=== PATIENT | male | born 1940 | race African-American/Black ===

== ENCOUNTER 2020-12-19 00:53 | Emergency (ER) | payer MEDICARE ==
[~2020-12-19] VITALS: Ht 182.9 cm; Wt 90.0 kg
[~2020-12-19 00:53] MED LIST: AMIT25TA9 PO; APIX5TAB PO; CARB-299 PO; CLON1TAB12 PO; DIGO125T80 PO; DILT240C96 PO; FURO20TA4 PO; GABA-529 PO; GLIP5TAB12 PO; HYDR-4133 PO; LOSA50TA41 PO; LOVA40TA73 PO; METF-416 PO; MONT10TA32 PO; OMEP20TA2 PO; P20 MT; PARO25TA9 PO; PERP1TAB6 PO; ROSU40TA PO; SITA1TAB2 PO; SITA50TA3 PO; TRAZ-252 PO
[2020-12-19 02:41] LABS: CLARITY URINE CLEAR (CLEAR); COLOR URINE YELLOW (YELLOW); KETONES URINE NEGATIVE (NEGATIVE); LEUKOCYTE ESTERASE URINE NEGATIVE (NEGATIVE); NITRITE URINE NEGATIVE (NEGATIVE); OCCULT BLOOD URINE NEGATIVE (NEGATIVE); PH URINE 5.5 (4.5-8.0); PROTEIN URINE NEGATIVE (NEGATIVE); SPECIFIC GRAVITY URINE 1.007 (1.005-1.030); UROBILINOGEN URINE 0.2 E.U./dL (0.2-1.0)
[2020-12-19 03:12] LABS: BASOPHILS % 0.3 % (0.0-2.0); EOSINOPHILS % 0.2 % (0.0-5.0); HEMATOCRIT. 35.8 % (42.0-52.0); HEMOGLOBIN. 12.5 g/dL (14.0-18.0); LYMPHOCYTES % 9.3 % (20.0-50.0); MEAN CORPUSCULAR HEMOGLOBIN 28.4 pg (28.0-32.0); MEAN CORPUSCULAR VOLUME 81.5 fL (80.0-94.0); MEAN PLATELET VOLUME 7.4 fl (7.4-10.4); MONOCYTES % 7.6 % (2.0-8.0); NEUTROPHILS % 82.6 % (40.0-76.0); PLATELET 248 x1000/uL (130-400); RED CELL DISTRIBUTION WIDTH 14.1 % (11.6-14.6)
[2020-12-19 03:17] LABS: CHLORIDE 102 mEq/L (98-107)
[2020-12-19 06:45] VITALS: BP 153/84
== END 2020-12-19 06:45 | disposition home or self-care (01) ==
LOC: ER 00:53
DX: F03.90 Unspecified dementia, unspecified severity, without behavioral disturbance, psychotic disturbance, mood disturbance, and anxiety (principal); I49.9 Cardiac arrhythmia, unspecified; Z79.899 Other long term (current) drug therapy; Z88.1 Allergy status to other antibiotic agents; Z88.5 Allergy status to narcotic agent; Z88.0 Allergy status to penicillin
CPT/HCPCS: 36415; 80053; 81003; 84484; 85025; 93005; 99284

== ENCOUNTER 2022-03-26 19:22 | Emergency (ER) | payer MEDICARE ==
[~2022-03-26] VITALS: Ht 182.9 cm; Wt 129.7 kg
[~2022-03-26 19:22] MED LIST changes: +BRIM5DRO6 EACHEYE; -CARB-299 PO; -CLON1TAB12 PO; -DIGO125T80 PO; -GABA-529 PO; -GLIP5TAB12 PO; -LOVA40TA73 PO; -METF-416 PO; +METO-385 PO; -MONT10TA32 PO; -OMEP20TA2 PO; -P20 MT; +PARO25TA20 PO; -PARO25TA9 PO; -PERP1TAB6 PO; -ROSU40TA PO; -SITA50TA3 PO; +TAMS-11 PO
[2022-03-26 19:34] VITALS: BP 166/87
== END 2022-03-27 01:17 | disposition left against medical advice (07) ==
LOC: ER 19:22
DX: Z53.21 Procedure and treatment not carried out due to patient leaving prior to being seen by health care provider (principal)